=== PATIENT | female | born 1980 | race Caucasian/White ===

== ENCOUNTER 2018-02-07 16:40 | Emergency (ER) | payer OTHER ==
[~2018-02-07] VITALS: Ht 160 cm; Wt 66.7 kg
[2018-02-07] MEDS ORDERED: SYNTHROID100 MCG (17:06)
[2018-02-07] MEDS ORDERED: PROTONIX20 MG (17:07)
== END 2018-02-07 20:49 | disposition home or self-care (01) ==
LOC: ER 16:40
DX: N39.0 Urinary tract infection, site not specified (principal); N30.80 Other cystitis without hematuria

== ENCOUNTER 2019-10-05 09:46 | Outpatient (CLI) | payer OTHER ==
[~2019-10-05 09:46] MED LIST: PROTONIX20 MG; SYNTHROID100 MCG
== END 2019-10-05 10:33 | disposition home or self-care (01) ==
LOC: NST 09:46
DX: Z34.83 Encounter for supervision of other normal pregnancy, third trimester (principal)

== ENCOUNTER 2019-11-02 10:13 | Outpatient (CLI) | payer OTHER | END 2019-11-02 10:57 | disposition home or self-care (01) | LOC: NST 10:13 | DX: Z34.83 Encounter for supervision of other normal pregnancy, third trimester (principal) ==

== ENCOUNTER 2019-11-10 07:49 | Outpatient (CLI) | payer OTHER | END 2019-11-10 09:07 | disposition home or self-care (01) | LOC: NST 07:49 | DX: Z34.83 Encounter for supervision of other normal pregnancy, third trimester (principal) ==

== ENCOUNTER 2019-11-13 14:20 | Inpatient (IN) | payer OTHER ==
[~2019-11-13] VITALS: Ht 160 cm; Wt 76.7 kg
[2019-11-13] MEDS ORDERED: LABETALOL HCL100 MG (16:13)
[2019-11-13] MEDS ORDERED: LEVO-T137 MCG PO (16:13)
[2019-11-13] MEDS ORDERED: OBSTETRIX ONE1 EACH PO (16:14)
[2019-11-13] MEDS ORDERED: SYNTHROID137 MCG PO (23:42)
[2019-11-13] MEDS ORDERED: ASPIR 8181 MG PO (23:42)
[2019-11-13] MEDS ORDERED: PRENATAL TABLE1 EACH PO (23:43)
[2019-11-17] MEDS ORDERED: OXYC1TAB9 PO (07:40)
[2019-11-17] MEDS ORDERED: KETO10TA2 PO (07:40)
== END 2019-11-17 13:15 | disposition home or self-care (01) | DRG 788 ==
LOC: O/R 14:20 → LDR 14:20 → SURG-SUITE 14:20 → O/R 11-14 13:13 → SURG-SUITE 11-14 15:13
PROVIDERS: Obstetrics & Gynecology; ADMIT Obstetrics & Gynecology Maternal & Fetal Medicine
PROC: 4A1HXFZ Monitoring of Products of Conception, Cardiac Rhythm, External Approach (ICD-10-PCS; 2019-11-14)
PROC: 3E033VJ Introduction of Other Hormone into Peripheral Vein, Percutaneous Approach (ICD-10-PCS; 2019-11-14)
PROC: 10D00Z1 Extraction of Products of Conception, Low, Open Approach (ICD-10-PCS; principal; 2019-11-14 14:00)
DX: O13.4 Gestational [pregnancy-induced] hypertension without significant proteinuria, complicating childbirth (principal); O34.211 Maternal care for low transverse scar from previous cesarean delivery; O36.5930 Maternal care for other known or suspected poor fetal growth, third trimester, not applicable or unspecified; O76 Abnormality in fetal heart rate and rhythm complicating labor and delivery; Z37.0 Single live birth; Z3A.33 33 weeks gestation of pregnancy